=== PATIENT | female | born 1955 | race Caucasian/White ===

== ENCOUNTER 2025-07-26 22:11 | Emergency (ER) | payer MEDICAID ==
[~2025-07-26] VITALS: Ht 154.9 cm; Wt 65.8 kg
[~2025-07-26 22:11] MED LIST: HYDR453.3 TP
[2025-07-26 22:30] VITALS: BP 144/76
[2025-07-26 23:18] LABS: PLATELET COUNT (AUTO) 183 K/uL (179-408); RED BLOOD CELL COUNT(AUTO) 3.90 MIL/uL (3.63-4.92); RED CELL DISTRIBUTION WIDTH 14.6 % (12.3-17.7); WHITE BLOOD COUNT (AUTO) 5.6 K/uL (3.8-11.8)
[2025-07-26] MEDS: IV NS 1000 ML 1,000 ML IV ONE (23:25)
[2025-07-26 23:26] LABS: CREATININE 0.6 mg/dL (0.6-1.3); SODIUM SERUM 139.0 mmol/L (136-145); UREA NITROGEN, BLOOD 12.0 mg/dL (7-18)
[2025-07-26 23:31] LABS: ASPARTATE AMINOTRANSFERASE 17.0 U/L (15-37); TOTAL PROTEIN, SERUM 7.6 g/dL (6.4-8.2)
[2025-07-27 00:20] LABS: *BILIRUBIN,URIN NEGATIVE (NEGATIVE); *COLOR,URINE LIGHT YELLOW (YELLOW); *KETONES,URINE NEGATIVE (NEGATIVE); *PROTEIN,URINE NEGATIVE (NEGATIVE); *UROBILINOGEN,URINE 0.2 E.U./dl (NORMAL); LEUKOCYTE ESTERASE ,URINE 1+ (NEGATIVE); NITRITE, URINE NEGATIVE (NEGATIVE); UGLUCOSE NEGATIVE (NEGATIVE)
[2025-07-27 00:22] LABS: *BLOOD, URINE TRACE (NEGATIVE); *CLARITY,URINE HAZY (CLEAR)
[2025-07-27 00:27] LABS: SQUAMOUS EPITHELIAL CELL,UR FEW /HPF (NONE SEEN)
[2025-07-27] MEDS ORDERED: ACETAMINOPHEN 500 MG TABLET ONE (01:31)
[2025-07-27] MEDS ORDERED: IBUPROFEN 200 MG TABLET ONE (01:31)
[2025-07-27] MEDS: ACETAMINOPHEN 500 MG TABLET PO ONE (01:36)
[2025-07-27] MEDS: IBUPROFEN 200 MG TABLET PO ONE (01:36)
[2025-07-27 01:52] VITALS: BP 140/71; TEMP 98; O2SAT 96
== END 2025-07-27 01:54 | disposition home or self-care (01) ==
LOC: ER 22:11
DX: T14.8XXA Other injury of unspecified body region, initial encounter (principal); E03.9 Hypothyroidism, unspecified; R10.9 Unspecified abdominal pain; Z90.49 Acquired absence of other specified parts of digestive tract; V43.62XA Car passenger injured in collision with other type car in traffic accident, initial encounter; Y93.89 Activity, other specified; Y92.488 Other paved roadways as the place of occurrence of the external cause; Y99.8 Other external cause status
CPT/HCPCS: 99284; 71250; 96360; 71045; 96361; 80076; 80048; 83690; 85025; 36415; 74176; 81001; 87086; J7040; A4606; A4663; A9150